=== PATIENT | male | born 1955 | race Caucasian/White ===

== ENCOUNTER 2017-04-24 07:11 | Emergency (ER) | payer MEDICAID ==
[~2017-04-24] VITALS: Ht 195.6 cm; Wt 102.0 kg
[~2017-04-24 07:11] MED LIST: VENTAER INH; ZITHTAB PO
[2017-04-24 07:14] VITALS: BP 147/62; PULSE 86; RESP 20; TEMP 97.6; O2SAT 95
[2017-04-24] MEDS ORDERED: SODIUM CHLORIDE 0.9% FLUSH 10 ML FLUSH IVF PRN (07:30)
[2017-04-24] MEDS ORDERED: methylPREDNISolone SOD SUCC 125 MG/2 ML VIAL IVP ONE (07:30)
--- NOTE | 2017-04-24 07:34 | PD ---
HPI Chief Complaint: Respiratory Symptoms Time Seen by Provider: 07:26 Travel History International Travel<30 days: No Contact w/Intl Traveler<30days: No Traveled to known affect area: No History of Present Illness HPI The patient is a 61 year-old male who presents to the emergency department for cough and cold symptoms of 3 days' duration. The patient complains of cough, congestion, chest pain with coughing, and mild shortness of breath. The patient states his cough has been mostly productive with white sputum, intermittent chills and sweats, and subjective fevers at home. The patient does have a history of pneumonia and previous "lung scraping "on the left lung at [facility] secondary to pneumonia years ago. The patient does have a history tobacco use, quit smoking 20 years ago. The patient used an albuterol nebulizer and inhaler at home last night with minimal relief of his symptoms. He also noted one episode of nausea/vomiting last night, but denies any abdominal pain. He denies any dysuria, myalgias, but does complain of diffuse arthralgias secondary to arthritis. The patient's primary physician is Dr. Samano. [facility] Past Medical History Hx Anticoagulant Therapy: No Cardiovascular Problems: No COPD: Yes Hepatitis: Yes (C) Respiratory: Yes (COPD) Pneumonia: Yes Past Surgical History Oral Surgery: Yes (jaw wired) Other Surgery: Yes ("LUNGS SCRAPED R/T PNA") Social History Alcohol Use: Yes (weekly) Tobacco Use: No (hx 30 years ago ) Substance Use: No Allergies-Medications (Allergen,Severity, Reaction): Coded Allergies: No Known Allergies (Unverified , 04/24/17) Reported Meds & Prescriptions Reported Meds & Active Scripts Active Reported Methylprednisolone 16 Mg Tab 15 Mg PO DAILY Ventolin Hfa 18 GM Inh (Albuterol Sulfate) 90 Mcg/Act Aer 1 Puff INH Q4H PRN Review of Systems Except as stated in HPI: all other systems reviewed are Neg General / Constitutional: Positive: Fever (subjective), Chills HENT: No: Headaches Cardiovascular: Positive: Chest Pain or Discomfort (secondary to cough) Respiratory: Positive: Cough, Shortness of Breath Gastrointestinal: Positive: Nausea, Vomiting, No: Diarrhea, Abdominal Pain Genitourinary: No: Dysuria Musculoskeletal: Positive: Arthralgias, Weakness, No: Myalgias Neurologic: Positive: Weakness, No: Dizziness Physical Exam Narrative GENERAL: Awake, alert, pleasant 7-year-old male who appears his stated age and is in no acute respiratory distress. SKIN: Focused skin assessment warm/dry. HEAD: Atraumatic. Normocephalic. EYES: Pupils equal and round. No scleral icterus. No injection or drainage. ENT: No nasal bleeding or discharge. Mucous membranes pink and moist. NECK: Trachea midline. No JVD. CARDIOVASCULAR: Regular rate and rhythm. No murmur appreciated. Heart rate in the 80s. RESPIRATORY: No accessory muscle use. Prolonged expiratory phase with intermittent wheezes and rhonchi in the right base. Well-healed scar over the left mid back. GASTROINTESTINAL: Abdomen soft, non-tender, nondistended. No rebound tenderness. MUSCULOSKELETAL: No obvious deformities. No clubbing. No cyanosis. No edema. NEUROLOGICAL: Awake and alert. No obvious cranial nerve deficits. Motor grossly within normal limits. Normal speech. PSYCHIATRIC: Appropriate mood and affect; insight and judgment normal. Data Data Last Documented VS Vital Signs Date Time Temp Pulse Resp B/P Pulse Ox O2 Delivery O2 Flow Rate FiO2 04/24/17 07:59 97 Room Air 04/24/17 07:29 80 80 04/24/17 07:14 97.6 147/62 Orders Complete Blood Count With Diff (04/24/17 07:30) Comprehensive Metabolic Panel (04/24/17 07:30) B-Type Natriuretic Peptide (04/24/17 07:30) Magnesium (Mg) (04/24/17 07:30) Ckmb (Isoenzyme) Profile (04/24/17 07:30) Troponin I (04/24/17 07:30) Iv Access Insert/Monitor (04/24/17 07:30) Electrocardiogram (04/24/17 07:30) Ecg Monitoring (04/24/17 07:30) Oximetry (04/24/17 07:30) Oxygen Administration (04/24/17 07:30) Chest, Single Ap (04/24/17 07:30) Sodium Chloride 0.9% Flush (Ns Flush) (04/24/17 07:30) Methylprednisolone So Succ Inj (Solumedr (04/24/17 07:30) Albuterol-Ipratropium Neb (Duoneb Neb) (04/24/17 07:30) Lactic Acid (04/24/17 07:30) Labs Laboratory Tests Test 04/24/17 07:54 White Blood Count 9.9 TH/MM3 Red Blood Count 4.62 MIL/MM3 Hemoglobin 14.7 GM/DL Hematocrit 41.4 % Mean Corpuscular Volume 89.7 FL Mean Corpuscular Hemoglobin 31.7 PG Mean Corpuscular Hemoglobin 35.4 % Concent Red Cell Distribution Width 12.8 % Platelet Count 159 TH/MM3 Mean Platelet Volume 8.0 FL Neutrophils (%) (Auto) 80.7 % Lymphocytes (%) (Auto) 11.3 % Monocytes (%) (Auto) 6.7 % Eosinophils (%) (Auto) 0.7 % Basophils (%) (Auto) 0.6 % Neutrophils # (Auto) 8.0 TH/MM3 Lymphocytes # (Auto) 1.1 TH/MM3 Monocytes # (Auto) 0.7 TH/MM3 Eosinophils # (Auto) 0.1 TH/MM3 Basophils # (Auto) 0.1 TH/MM3 CBC Comment DIFF FINAL Differential Comment Sodium Level 143 MEQ/L Potassium Level 4.4 MEQ/L Chloride Level 107 MEQ/L Carbon Dioxide Level 30.1 MEQ/L Anion Gap 6 MEQ/L Blood Urea Nitrogen 27 MG/DL Creatinine 1.21 MG/DL Estimat Glomerular Filtration 61 ML/MIN Rate Random Glucose 99 MG/DL Lactic Acid Level 1.3 mmol/L Calcium Level 8.4 MG/DL Magnesium Level 2.0 MG/DL Total Bilirubin 0.9 MG/DL Aspartate Amino Transf 26 U/L (AST/SGOT) Alanine Aminotransferase 43 U/L (ALT/SGPT) Alkaline Phosphatase 61 U/L Total Creatine Kinase 88 U/L Troponin I LESS THAN 0.02 NG/ML B-Type Natriuretic Peptide 10 PG/ML Total Protein 7.2 GM/DL Albumin 3.5 GM/DL [facility] Medical Decision Making Medical Screen Exam Complete: Yes Emergency Medical Condition: Yes Medical Record Reviewed: Yes Interpretation(s) EKG reveals normal sinus rhythm with a rate of 67. No significant ST elevations or depressions noted. Last Impressions Chest X-Ray 04/24/17 0730 Signed Impressions: Service Date/Time: Monday, April 24, 2017 07:36 - CONCLUSION: Chronic opacity at the left lung base likely represents chronic pleural or parenchymal scar given the lack of significant change since the June 2016 examination. Alternatively, it is possible that chronic pleural effusion or pleural thickening is present as well. Kuldip Lambert MD Laboratory Tests Test 04/24/17 07:54 White Blood Count 9.9 TH/MM3 Red Blood Count 4.62 MIL/MM3 Hemoglobin 14.7 GM/DL Hematocrit 41.4 % Mean Corpuscular Volume 89.7 FL Mean Corpuscular Hemoglobin 31.7 PG Mean Corpuscular Hemoglobin 35.4 % Concent Red Cell Distribution Width 12.8 % Platelet Count 159 TH/MM3 Mean Platelet Volume 8.0 FL Neutrophils (%) (Auto) 80.7 % Lymphocytes (%) (Auto) 11.3 % Monocytes (%) (Auto) 6.7 % Eosinophils (%) (Auto) 0.7 % Basophils (%) (Auto) 0.6 % Neutrophils # (Auto) 8.0 TH/MM3 Lymphocytes # (Auto) 1.1 TH/MM3 Monocytes # (Auto) 0.7 TH/MM3 Eosinophils # (Auto) 0.1 TH/MM3 Basophils # (Auto) 0.1 TH/MM3 CBC Comment DIFF FINAL Differential Comment Sodium Level 143 MEQ/L Potassium Level 4.4 MEQ/L Chloride Level 107 MEQ/L Carbon Dioxide Level 30.1 MEQ/L Anion Gap 6 MEQ/L Blood Urea Nitrogen 27 MG/DL Creatinine 1.21 MG/DL Estimat Glomerular Filtration 61 ML/MIN Rate Random Glucose 99 MG/DL Lactic Acid Level 1.3 mmol/L Calcium Level 8.4 MG/DL Magnesium Level 2.0 MG/DL Total Bilirubin 0.9 MG/DL Aspartate Amino Transf 26 U/L (AST/SGOT) Alanine Aminotransferase 43 U/L (ALT/SGPT) Alkaline Phosphatase 61 U/L Total Creatine Kinase 88 U/L Troponin I LESS THAN 0.02 NG/ML B-Type Natriuretic Peptide 10 PG/ML Total Protein 7.2 GM/DL Albumin 3.5 GM/DL Differential Diagnosis Differential diagnosis includes bronchitis, pneumonia, pleural effusion, congestive heart failure, COPD exacerbation, acute coronary syndrome, viral syndrome, influenza. Narrative Course IV was established, labs are drawn and sent, and the patient was placed on cardiac telemetry monitoring and continuous pulse oximetry monitoring. EKG was ordered and interpreted. Chest x-ray was obtained. The patient was administered Solu-Medrol 125 mg and duo nebs 2. The chest x-ray reveals chronic changes, labs are unremarkable. The patient does have a history of recurrent pneumonia, will be treated for bronchitis with prednisone, Zithromax, and he is advised to continue his nebulizers at home. He is also advised to return if symptoms worsen or progress. Diagnosis Primary Impression: Bronchitis Patient Instructions: General Instructions Additional Instructions: Medications as directed. Follow-up with your primary physician. Continue your nebulizers at home every 4 hours while awake. Return if symptoms worsen or progress. Please provide the patient a copy of his lab results and chest x-ray results at discharge. Med/Other Pt SpecificInfo: Prescription(s) given Scripts Azithromycin (Zithromax Z-Richard)250 Mg [id number] Mg PO DIRECTED #1 DSPK Ref 0 500 MG (2 tabs) day 1, then 1 tab days 2-5. Prov:Angel Mcwilliams MD 04/24/17 Prednisone (Deltasone)20 Mg Tab40 Mg PO DAILY 4 Days Ref 0 Prov:Angel Mcwilliams MD 04/24/17 Disposition: DISCHARGE HOME Condition: Stable Angel Mcwilliams MD Apr 24, 2017 07:34
[2017-04-24] MEDS: RESP: ALBUTEROL 2.5 MG/IPRATROPIUM 0.5 MG NEB (SCH) INH ×2 (07:45→08:21)
[2017-04-24 08:04] LABS: BASOPHIL # 0.1 TH/MM3 (0-0.2); BASOPHIL % 0.6 % (0.0-2.0); EOSINOPHIL # 0.1 TH/MM3 (0-0.4); EOSINOPHIL % 0.7 % (0.0-4.0); HEMATOCRIT 41.4 % (39.0-51.0); HEMO FLAGS DIFF FINAL; LYMPH % 11.3 % (9.0-44.0); LYMPHOCYTE # 1.1 TH/MM3 (1.0-4.8); MEAN CELL VOLUME 89.7 FL (80.0-100.0); MEAN CORPUSCULAR HEMOGLOBIN 31.7 PG (27.0-34.0); MEAN CORPUSCULAR HGB CONC 35.4 % (32.0-36.0); MONO % 6.7 % (0.0-8.0); NEUT % 80.7 % (16.0-70.0); PLATELET COUNT 159 TH/MM3 (150-450); RED BLOOD COUNT 4.62 MIL/MM3 (4.50-5.90); RED CELL DISTRIBUTION WIDTH 12.8 % (11.6-17.2); WHITE BLOOD COUNT 9.9 TH/MM3 (4.0-11.0)
[2017-04-24] MEDS ORDERED: METH16TA PO (08:08)
--- NOTE | 2017-04-24 08:08 | RADRPT ---
EXAM DATE/TIME: 04/24/2017 07:36 [facility] COMPARISON: CHEST SINGLE AP, June 21, 2016, 10:01. CHEST SINGLE AP, September 29, 2016, 9:27. INDICATIONS : Cough and fever. MEDICAL HISTORY : hx pneumonia SURGICAL HISTORY : sx for pneumonia at [facility] ENCOUNTER: Initial ACUITY: 4 - 6 days PAIN SCORE: 5/10 LOCATION: Bilateral upper chest FINDINGS: Portable AP view of the chest demonstrates a normal-sized cardiac silhouette. There is pleural-parenc hymal opacity at the left lung base similar to the prior study. No pneumothorax is visualized. Right lung is clear. Bones demonstrate no acute finding. CONCLUSION: Chronic opacity at the left lung base likely represents chronic pleural or parenchymal scar given the lack of significant change since the June 2016 examination. Alternatively, it is possible that chr onic pleural effusion or pleural thickening is present as well. Kuldip Lambert MD on April 24, 2017 at 8:04 Board Certified Radiologist. This report was verified electronically.
[2017-04-24 08:44] LABS: ALT (GPT) 43 U/L (12-78); ANION GAP 6 MEQ/L (5-15); AST (GOT) 26 U/L (15-37); BICARBONATE 30.1 MEQ/L (21.0-32.0); BLOOD UREA NITROGEN 27 MG/DL (7-18); CHLORIDE 107 MEQ/L (98-107); GLOMERULAR FILTRATION RATE 61 ML/MIN (>89); POTASSIUM 4.4 MEQ/L (3.5-5.1); SODIUM (NA) 143 MEQ/L (136-145)
[2017-04-24 08:48] LABS: ALKALINE PHOSPHATASE 61 U/L (45-117); TOTAL BILIRUBIN ADULT 0.9 MG/DL (0.2-1.0)
[2017-04-24 08:52] LABS: CREATINE KINASE 88 U/L (39-308)
[2017-04-24] MEDS ORDERED: PRED-503 PO (09:13)
[2017-04-24] MEDS ORDERED: ZITHTAB PO (09:13)
--- NOTE | 2017-04-24 13:03 | EKG ---
Date Performed: 04/24/2017 Time Performed: 07:38:23 PTAGE: 61 years EKG: Sinus rhythm POSSIBLE RIGHT VENTRICULAR CONDUCTION DELAY BORDERLINE ECG PREVIOUS TRACING : 06/21/2016 09.47 Compared to prior tracing no significant change DOCTOR: Rafiq Mccurdy Interpretating Date/Time 04/24/2017 13:01:45
== END 2017-04-24 09:30 | disposition home or self-care (01) ==
LOC: NEPE 07:11
DX: J40 Bronchitis, not specified as acute or chronic (principal); R94.31 Abnormal electrocardiogram [ECG] [EKG]; R06.02 Shortness of breath
CPT/HCPCS: 71010; 80053; 82550; 83605; 83735; 83880; 84484; 85025; 93005; 94640; 94664; 96374; 99285; J2930

== ENCOUNTER 2017-07-01 09:39 | Emergency (ER) | payer MEDICAID ==
[~2017-07-01 09:39] MED LIST changes: +METH16TA PO; +PRED-503 PO
[2017-07-01 09:41] VITALS: BP 136/62; PULSE 59; RESP 15; TEMP 98.2; O2SAT 98
--- NOTE | 2017-07-01 09:57 | PD ---
HPI . Frequent coughing, head congestion for 3 days Chief Complaint: Cold / Flu Symptoms Time Seen by Provider: 09:57 Travel History International Travel<30 days: No Contact w/Intl Traveler<30days: No Traveled to known affect area: No History of Present Illness HPI 61-year-old male here with complaints of head congestion and coughing for the past 3 days. Patient tells me that he has a history of pneumonia several years ago and he does not want to be sick as he has a trip scheduled to [place] on July 09. Patient denies any fever or chills. He reports frequent dry coughing and some head congestion. PFSH Past Medical History Hx Anticoagulant Therapy: No Cardiovascular Problems: No COPD: Yes Hepatitis: Yes (C) Respiratory: Yes Pneumonia: Yes Past Surgical History Oral Surgery: Yes (jaw wired) Other Surgery: Yes ("LUNGS SCRAPED R/T PNA") Social History Alcohol Use: Yes (weekly) Tobacco Use: No (hx 30 years ago ) Substance Use: No Allergies-Medications (Allergen,Severity, Reaction): Coded Allergies: No Known Allergies (Unverified , 04/24/17) Reported Meds & Prescriptions Reported Meds & Active Scripts Active Ventolin Hfa 18 GM Inh (Albuterol Sulfate) 90 Mcg/Act Aer 2 Puff INH Q6H PRN Zithromax Z-Richard (Azithromycin) 250 Mg Dspk 250 Mg PO DIRECTED 500 MG (2 tabs) day 1, then 1 tab days 2-5. Medrol Dosepak (Methylprednisolone) 4 Mg Dspk 4 Mg PO DIRECTED Per Pharmacist direction Zithromax Z-Richard (Azithromycin) 250 Mg Dspk 250 Mg PO DIRECTED 500 MG (2 tabs) day 1, then 1 tab days 2-5. Deltasone (Prednisone) 20 Mg Tab 40 Mg PO DAILY 4 Days Reported Methylprednisolone 16 Mg Tab 15 Mg PO DAILY Ventolin Hfa 18 GM Inh (Albuterol Sulfate) 90 Mcg/Act Aer 1 Puff INH Q4H PRN Review of Systems General / Constitutional: No: Fever Eyes: No: Visual changes HENT: Positive: Congestion, No: Headaches Cardiovascular: No: Chest Pain or Discomfort Respiratory: Positive: Cough, No: Shortness of Breath Gastrointestinal: No: Abdominal Pain Genitourinary: No: Dysuria Musculoskeletal: No: Pain Skin: No Rash Neurologic: No: Weakness Psychiatric: No: Depression Endocrine: No: Polydipsia Hematologic/Lymphatic: No: Easy Bruising Physical Exam Narrative GENERAL: AAO x 3, no acute distress, Well-nourished, well-developed patient. SKIN: Warm and dry. No visible rashes or bruising. HEAD: Normocephalic and atraumatic. EYES: No scleral icterus. No injection or drainage. ENT: No nasal drainage noted. Mucous membranes pink. Airway patent. No posterior pharynx abnormality. TMs normal bilaterally NECK: Supple, trachea midline. No JVD. CARDIOVASCULAR: Regular rate and rhythm without murmurs, gallops, or rubs. RESPIRATORY: Breath sounds equal bilaterally. No accessory muscle use. No rhonchi or rales. No wheezing GASTROINTESTINAL: Visual inspection normal EXTREMITIES: No cyanosis or edema. BACK: No obvious deformity. NEURO: CN II-12 intact, manager integrity strength normal b/l, UE and LE 5/5, no focal deficits PSYCH: AAO x 3, normal affect. Data Data Last Documented VS Vital Signs Date Time Temp Pulse Resp B/P (MAP) Pulse Ox O2 Delivery O2 Flow Rate FiO2 07/01/17 09:41 98.2 59 15 136/62 (86) 98 Orders Orders Chest, Pa & Lat (07/01/17 10:00) MDM Medical Decision Making Medical Screen Exam Complete: Yes Emergency Medical Condition: Yes Medical Record Reviewed: Yes Differential Diagnosis Bronchitis, pneumonia, less likely influenza, sinusitis Narrative Course 61-year-old male here with complaints of frequent coughing and head congestion. On examination there are no gross abnormalities. Patient appears to have a bronchitis. Given his past medical history I will check a chest x-ray to rule out any type of pneumonia. This appears to be bronchitis. Discussed with Lien in radiology: no acute cardiopulmonary process. Provided prednisone, ventolin, and zithromax. Advised f/u with PCP. Diagnosis Primary Impression: Bronchitis Patient Instructions: General Instructions Additional Instructions: As we discussed the cough can last 6-8 weeks. Take medications as prescribed. If you are a smoker, try to quit. Follow up with your primary care provider. If you develop sudden onset or worsening of shortness or breath, please go to the nearest emergency room. Please return to emergency department if your symptoms return or worsen. Follow up with your primary care provider. Take medications as prescribed. Med/Other Pt SpecificInfo: Prescription(s) given Scripts Albuterol 18 GM Inh (Ventolin Hfa 18 GM Inh) 90 Mcg/Act Aer 2 PUFF INH Q6H Y for SHORTNESS OF BREATH, #1 INHALER 0 Refills Prov: Jorge L Rene MD 07/01/17 Azithromycin (Zithromax Z-Richard) 250 Mg Dspk 250 MG PO DIRECTED for Infection, #1 DSPK 0 Refills 500 MG (2 tabs) day 1, then 1 tab days 2-5. Prov: Jorge L Rene MD 07/01/17 Methylprednisolone Dosepak (Medrol Dosepak) 4 Mg Dspk 4 MG PO DIRECTED, #1 DSPK 0 Refills Per Pharmacist direction Prov: Jorge L Rene MD 07/01/17 Disposition: 01 DISCHARGE HOME Condition: Stable Corrie Richardson Jul 01, 2017 09:57
--- NOTE | 2017-07-01 10:51 | RADRPT ---
EXAM DATE/TIME: 07/01/2017 10:26 [facility] COMPARISON: CHEST SINGLE AP, June 21, 2016, 10:01. INDICATIONS : Cough. MEDICAL HISTORY : Chronic obstructive pulmonary disease. Hepatitis C. SURGICAL HISTORY : None. ENCOUNTER: Initial ACUITY: 3 days PAIN SCORE: 6/10 LOCATION: Bilateral middle chest FINDINGS: The lungs are clear without infiltrate, nodule, or mass except for scarring in the left lung base and left costophrenic angle not changed since 2016. COPD changes are again seen. There is no appreciabl e pleural effusion for technique. Heart and mediastinum are unremarkable. CONCLUSION: No acute cardiopulmonary disease. Darlene Kennedy MD on July 01, 2017 at 10:48 Board Certified Radiologist. This report was verified electronically.
[2017-07-01] MEDS ORDERED: VENTAER INH (11:34)
[2017-07-01] MEDS ORDERED: MEDR4PAK PO (11:34)
[2017-07-01] MEDS ORDERED: ZITHTAB PO (11:34)
== END 2017-07-01 09:40 | disposition home or self-care (01) ==
LOC: NEPK 09:39 → NETRI 09:40
DX: J40 Bronchitis, not specified as acute or chronic (principal); J44.9 Chronic obstructive pulmonary disease, unspecified; Z86.19 Personal history of other infectious and parasitic diseases; Z79.899 Other long term (current) drug therapy
CPT/HCPCS: 71020; 99284

== ENCOUNTER 2017-10-26 07:12 | Emergency (ER) | payer MEDICAID ==
[~2017-10-26] VITALS: Ht 195.6 cm; Wt 95.0 kg
[~2017-10-26 07:12] MED LIST changes: +MEDR4PAK PO
[2017-10-26 07:15] VITALS: BP 140/75; PULSE 64; RESP 18; TEMP 97.6; O2SAT 98
[2017-10-26] MEDS ORDERED: MELO15TA20 PO (07:25)
--- NOTE | 2017-10-26 07:37 | PD ---
HPI Chief Complaint: Cold / Flu Symptoms Time Seen by Provider: 07:37 Travel History International Travel<30 days: No Contact w/Intl Traveler<30days: No Traveled to known affect area: No History of Present Illness HPI 61-year-old male, with history of COPD, presents to the emergency Department with complaint of cough since Wednesday. He is concerned he has pneumonia because he has had pneumonia many times in the past. With wheezing and chest congestion. Denies chest pain, shortness of breath. Denies fevers, nasal congestion, ear pain. Reports throat irritation. Has been using his albuterol nebulizer and inhaler at home with good relief of symptoms. No known relieving or aggravating factors. Symptoms are mild in severity. Dr. Samano is primary care provider. No known allergies. Has no medical complaints. No other modifying factors or associated signs. PFSH Past Medical History Hx Anticoagulant Therapy: No Arthritis: Yes Cardiovascular Problems: No Chemotherapy: No COPD: Yes Diminished Hearing: No Hepatitis: Yes (C) Respiratory: Yes Pneumonia: Yes Tetanus Vaccination: < 5 Years Influenza Vaccination: No Past Surgical History Oral Surgery: Yes (jaw wired) Other Surgery: Yes ("LUNGS SCRAPED R/T PNA") Social History Alcohol Use: Yes (ocassionally) Tobacco Use: No (quit 20 years ago) Substance Use: No Allergies-Medications (Allergen,Severity, Reaction): Coded Allergies: No Known Allergies (Verified Adverse Reaction, Unknown, 10/26/17) Reported Meds & Prescriptions Reported Meds & Active Scripts Active Ventolin Hfa 18 GM Inh (Albuterol Sulfate) 90 Mcg/Act Aer 2 Puff INH Q4-6H PRN Deltasone (Prednisone) 20 Mg Tab 40 Mg PO DAILY 4 Days start 10/27/2017 Azithromycin 500 Mg Tab 500 Mg PO DAILY Reported Meloxicam 15 Mg Tab 15 Mg PO DAILY Review of Systems Except as stated in HPI: all other systems reviewed are Neg Physical Exam Narrative GENERAL: Well-nourished, well-developed male patient, in no acute distress; afebrile, nontoxic-appearing SKIN: Warm and dry. HEAD: Atraumatic. Normocephalic. EYES: Pupils equal and round. No scleral icterus. No injection or drainage. ENT: Mucosa pink and moist. No erythema or exudates. No uvular edema. No uvular , palatal, or tonsillar deviation. Airway patent. Nares without nasal blood, purulent drainage or septal hematoma. EARS: Bilateral pinnae and external canals appear within normal limits. Bilateral tympanic membranes without erythema, dullness or perforation. NECK: Trachea midline. No lymphadenopathy. CARDIOVASCULAR: Regular rate and rhythm. No murmur appreciated. RESPIRATORY: No accessory muscle use. Lungs with mild Wheezing throughout to auscultation. Breath sounds equal bilaterally. No retractions or tachypnea. No Audible wheezing noted. GASTROINTESTINAL: Abdomen soft, non-tender, nondistended. Hepatic and splenic margins not palpable. Bowel sounds are active 4 quadrants. MUSCULOSKELETAL: No obvious deformities. No clubbing. No cyanosis. No edema. NEUROLOGICAL: Awake and alert. Oriented 3. No obvious cranial nerve deficits. Motor grossly within normal limits. Normal speech. Moves all extremities. 5/5 strength to all extremities. PSYCHIATRIC: Appropriate mood and affect; insight and judgment normal. Data Data Last Documented VS Vital Signs Date Time Temp Pulse Resp B/P (MAP) Pulse Ox O2 Delivery O2 Flow Rate FiO2 10/26/17 07:26 69 18 98 Room Air 10/26/17 07:15 97.6 140/75 (96) Orders Orders Chest, Single Ap (10/26/17 07:32) Prednisone (Deltasone) (10/26/17 07:45) Albuterol-Ipratropium Neb (Duoneb Neb) (10/26/17 07:45) Albuterol-Ipratropium Neb (Duoneb Neb) (10/26/17 08:00) Ed Discharge Order (10/26/17 08:22) [facility] Medical Decision Making Medical Screen Exam Complete: Yes Emergency Medical Condition: Yes Medical Record Reviewed: Yes Differential Diagnosis Pneumonia, COPD exacerbation, viral illness Narrative Course 61-year-old male with history of COPD with suspected viral illness and COPD exacerbation. He is in no acute distress and oxygen saturation is 98% on room air. No audible wheezing. Mild wheezing on auscultation of bilateral lungs. Lung sounds are equal. Patient is afebrile and nontoxic-appearing. He denies fevers, vomiting. DuoNeb, Deltasone, chest x-ray ordered. 0758: Respiratory therapist requesting a second DuoNeb. Second DuoNeb ordered. 0823: Chest x-ray concludes: Chest X-Ray 10/26/17 0732 Signed Impressions: Service Date/Time: Thursday, October 26, 2017 07:42 - CONCLUSION: 1. 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 2. No acute abnormality or significant interval change. Eric Masters MD This findings with the patient and a copy of the chest x-ray report was provided to the patient. On reexamination lung sounds are clear and equal throughout. Patient reports improvement in symptoms. Azithromycin, Ventolin inhaler, Deltasone prescribed for home. Instructed to patient to follow up with primary care provider and fisheries enforcement officer. Instructed patient to follow up with primary care provider. Patient verbalizes understanding and agreement with treatment plan. Patient is medically cleared and stable for discharge. Discussed reasons to return to the emergency department. Patient agrees with treatment plan. The patients vital signs are stable and the patient is stable for outpatient follow-up and treatment. Patient discharged home, stable and in no acute distress. Diagnosis Primary Impression: COPD exacerbation Additional Impression: Viral illness Referrals: Primary Care Physician Natural Science Manager Patient Instructions: COPD (Chronic Obstructive Pulmonary Disease) (ED), Cold Symptoms (ED), General Instructions, Safe Use of Cough and Cold Medicines (ED) Additional Instructions: Antibiotics as prescribed Use Albuterol inhaler as prescribed Take oral steroids as prescribed and complete full course [id number] decongestants or antihistamines as directed and as needed for symptom management Drink plenty of fluids to prevent dehydration Use hot air humidifier to decrease cough exacerbation Turn off ceiling fans and sleep with head of bed elevated Avoid triggers such as second hand smoke, dust, known allergens Follow-up with your primary care provider Return to the emergency department immediately with worsening of symptoms Med/Other Pt SpecificInfo: Prescription(s) given Scripts Albuterol 18 GM Inh (Ventolin Hfa 18 GM Inh) 90 Mcg/Act Aer 2 PUFF INH Q4-6H Y for SOB/WHEEZING, #1 INHALER 0 Refills Prov: Olivia Garnett POLICE RECORDS CLERK 10/26/17 Prednisone (Deltasone) 20 Mg Tab 40 MG PO DAILY for 4 Days, #8 TAB 0 Refills start 10/27/2017 Prov: Olivia GarnettP 10/26/17 Azithromycin (Azithromycin) 500 Mg Tab 500 MG PO DAILY for Infection, #5 TAB 0 Refills Prov: Olivia Garnett 10/26/17 Disposition: 01 DISCHARGE HOME Condition: Stable Olivia Garnett Oct 26, 2017 07:37
[2017-10-26] MEDS ORDERED: RESP: ALBUTEROL 2.5 MG/IPRATROPIUM 0.5 MG NEB (SCH) INH ONE ×2 (07:45→08:00)
[2017-10-26] MEDS ORDERED: predniSONE 20 MG TAB PO ONE (07:45)
[2017-10-26] MEDS ORDERED: VENTAER INH (07:49)
[2017-10-26] MEDS ORDERED: AZIT500T2 PO (07:49)
[2017-10-26] MEDS ORDERED: PRED-503 PO (07:49)
--- NOTE | 2017-10-26 07:59 | RADRPT ---
EXAM DATE/TIME: 10/26/2017 07:42 [facility] COMPARISON: CHEST SINGLE AP, April 24, 2017, 7:36. INDICATIONS : Cough, congestion, shortness of breath. MEDICAL HISTORY : Arthritis. Chronic obstructive pulmonary disease. Hepatitis C. SURGICAL HISTORY : None. ENCOUNTER: Initial ACUITY: 3 days PAIN SCORE: 0/10 LOCATION: Bilateral chest FINDINGS: Redemonstration of pleural parenchymal opacity at the left lung base. No new focal pleural or parench ymal opacities. Cardiomediastinal contours are within normal limits. Bony thorax is intact. CONCLUSION: 1. 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 2. No acute abnormality or significant interval change. Eric Masters MD on October 26, 2017 at 7:55 Board Certified Radiologist. This report was verified electronically.
[2017-10-26 08:35] VITALS: BP 124/85; TEMP 97.8
== END 2017-10-26 08:35 | disposition home or self-care (01) ==
LOC: NEPD 07:12
DX: J44.1 Chronic obstructive pulmonary disease with (acute) exacerbation (principal); Z87.891 Personal history of nicotine dependence
CPT/HCPCS: 71010; 94640; 94664; 99284; J7512

== ENCOUNTER 2017-11-16 19:01 | Emergency (ER) | payer MEDICAID ==
[~2017-11-16 19:01] MED LIST changes: +AZIT500T2 PO; -MEDR4PAK PO; +MELO15TA20 PO; -METH16TA PO; -ZITHTAB PO
[2017-11-16 19:03] VITALS: BP 141/88; PULSE 72; RESP 16; TEMP 98.1; O2SAT 98
[2017-11-16 20:41] LABS: AUTOMATED NEUTROPHIL # 8.1 TH/MM3 (1.8-7.7); BASOPHIL # 0.1 TH/MM3 (0-0.2); BASOPHIL % 0.5 % (0.0-2.0); EOSINOPHIL # 0.2 TH/MM3 (0-0.4); EOSINOPHIL % 1.5 % (0.0-4.0); HEMATOCRIT 44.8 % (39.0-51.0); HEMOGLOBIN 15.8 GM/DL (13.0-17.0); LYMPH % 15.7 % (9.0-44.0); LYMPHOCYTE # 1.7 TH/MM3 (1.0-4.8); MEAN CORPUSCULAR HEMOGLOBIN 32.4 PG (27.0-34.0); MEAN CORPUSCULAR HGB CONC 35.2 % (32.0-36.0); MEAN PLATELET VOLUME 8.4 FL (7.0-11.0); MONO % 7.4 % (0.0-8.0); MONOCYTE # 0.8 TH/MM3 (0-0.9); NEUT % 74.9 % (16.0-70.0); PLATELET COUNT 199 TH/MM3 (150-450); RED BLOOD COUNT 4.87 MIL/MM3 (4.50-5.90); RED CELL DISTRIBUTION WIDTH 13.1 % (11.6-17.2); WHITE BLOOD COUNT 10.8 TH/MM3 (4.0-11.0)
[2017-11-16 20:51] LABS: ALBUMIN 3.8 GM/DL (3.4-5.0); AST (GOT) 31 U/L (15-37); BLOOD UREA NITROGEN 18 MG/DL (7-18); CHLORIDE 104 MEQ/L (98-107); CREATININE 1.37 MG/DL (0.60-1.30); GLOMERULAR FILTRATION RATE 53 ML/MIN (>89); GLUCOSE,RANDOM 86 MG/DL (74-106); SODIUM (NA) 137 MEQ/L (136-145)
[2017-11-16 20:52] LABS: ALT (GPT) 42 U/L (12-78)
[2017-11-16 20:55] LABS: ALKALINE PHOSPHATASE 54 U/L (45-117); TOTAL BILIRUBIN ADULT 0.7 MG/DL (0.2-1.0); TOTAL PROTEIN 8.1 GM/DL (6.4-8.2)
[2017-11-17] MEDS ORDERED: IBUP1TAB7 PO (13:43)
[2017-11-17] MEDS ORDERED: SULF1TAB23 PO (13:43)
[2017-11-17] MEDS ORDERED: CEPH500C PO (13:43)
[2017-11-17] MEDS ORDERED: CLIN150C14 PO (14:17)
--- NOTE | 2017-11-23 22:30 | PD ---
HPI Chief Complaint: Skin Problem Time Seen by Provider: 19:46 Travel History International Travel<30 days: No Contact w/Intl Traveler<30days: No Traveled to known affect area: No History of Present Illness HPI Pt has a 62-year-old male presenting to the emergency room for evaluation of redness to his right thigh. Patient states he went to urgent care Wednesday [place] prescribed antibiotics. He states he has been compliant with this regimen. Despite the antibiotic therapy the redness has worsened prompting his visit to the emergency department. Patient's symptoms started on Wednesday, he reports a remote history of IV drug use an day history of hepatitis C. patient reports subjective fevers or chills. He states the pain as a 7 out of 10. There are no alleviating factors. His pain exacerbated to touch. PFSH Past Medical History Hx Anticoagulant Therapy: No Arthritis: Yes Cardiovascular Problems: No Chemotherapy: No COPD: Yes Diminished Hearing: No Hepatitis: Yes (C) Respiratory: Yes Pneumonia: Yes Past Surgical History Oral Surgery: Yes (jaw wired) Other Surgery: Yes ("LUNGS SCRAPED R/T PNA") Social History Alcohol Use: Yes (ocassionally) Tobacco Use: No (quit 20 years ago) Substance Use: No Allergies-Medications (Allergen,Severity, Reaction): Coded Allergies: No Known Allergies (Verified Adverse Reaction, Unknown, 11/23/17) Reported Meds & Prescriptions Reported Meds & Active Scripts Active Tessalon Perles (Benzonatate) 100 Mg Cap 100 Mg PO TID PRN Diclofenac Sodium DR (Diclofenac Sodium) 75 Mg Tabdr 75 Mg PO BID PRN Azithromycin 250 Mg Tab 250 Mg PO DIRECTED Take 2 tabs (500 mg) on day 1 then 1 tab daily x 4 days. Deltasone (Prednisone) 20 Mg Tab 40 Mg PO DAILY 4 Days start 10/27/2017 Ventolin Hfa 18 GM Inh (Albuterol Sulfate) 90 Mcg/Act Aer 2 Puff INH Q4-6H PRN Clindamycin (Clindamycin HCl) 150 Mg Cap 300 Mg PO Q6H 7 Days Reported Sulfamethoxazole-Trimethoprim 800-160 Mg Tab 1 Tab PO BID Cephalexin 500 Mg Cap 500 Mg PO TID Ibuprofen 800 Mg Tab 800 Mg PO TID Meloxicam 15 Mg Tab 15 Mg PO DAILY Review of Systems Except as stated in HPI: all other systems reviewed are Neg General / Constitutional: Positive: Fever, Chills Musculoskeletal: Positive: Myalgias Skin: Positive Change in Pigmentation Physical Exam Narrative GENERAL: Well-developed, well-nourished, alert male. Presenting in no acute distress. SKIN: Warm and dry. Clothing covering area of redness. HEAD: Normocephalic. EYES: No scleral icterus. No injection or drainage. CARDIOVASCULAR: Regular rate RESPIRATORY: No accessory muscle use. Data Data Orders Orders Complete Blood Count With Diff (11/16/17 19:50) Comprehensive Metabolic Panel (11/16/17 19:50) Labs Laboratory Tests Test 11/16/17 20:05 White Blood Count 10.8 TH/MM3 Red Blood Count 4.87 MIL/MM3 Hemoglobin 15.8 GM/DL Hematocrit 44.8 % Mean Corpuscular Volume 92.0 FL Mean Corpuscular Hemoglobin 32.4 PG Mean Corpuscular Hemoglobin Concent 35.2 % Red Cell Distribution Width 13.1 % Platelet Count 199 TH/MM3 Mean Platelet Volume 8.4 FL Neutrophils (%) (Auto) 74.9 % Lymphocytes (%) (Auto) 15.7 % Monocytes (%) (Auto) 7.4 % Eosinophils (%) (Auto) 1.5 % Basophils (%) (Auto) 0.5 % Neutrophils # (Auto) 8.1 TH/MM3 Lymphocytes # (Auto) 1.7 TH/MM3 Monocytes # (Auto) 0.8 TH/MM3 Eosinophils # (Auto) 0.2 TH/MM3 Basophils # (Auto) 0.1 TH/MM3 CBC Comment AUTO DIFF Differential Comment AUTO DIFF CONFIRMED Blood Urea Nitrogen 18 MG/DL Creatinine 1.37 MG/DL Random Glucose 86 MG/DL Total Protein 8.1 GM/DL Albumin 3.8 GM/DL Calcium Level 9.0 MG/DL Alkaline Phosphatase 54 U/L Aspartate Amino Transf (AST/SGOT) 31 U/L Alanine Aminotransferase (ALT/SGPT) 42 U/L Total Bilirubin 0.7 MG/DL Sodium Level 137 MEQ/L Potassium Level 4.9 MEQ/L Chloride Level 104 MEQ/L Carbon Dioxide Level 29.0 MEQ/L Anion Gap 4 MEQ/L Estimat Glomerular Filtration Rate 53 ML/MIN MDM Medical Decision Making Medical Screen Exam Complete: Yes Emergency Medical Condition: Yes Differential Diagnosis Cellulitis versus abscess versus metabolic abnormality versus other Narrative Course Patient a 62-year-old male presenting to the emergency department for evaluation of cellulitis to his thigh. Patient's vital signs reviewed are stable. Patient awaiting bed placement. Protocol initiated in triage Patient has called to be bedded, he was not longer found in the emergency department. Lab's reviewed, no acute findings identified. Patient left the emergency department AGAINST MEDICAL ADVICE. Diagnosis Primary Impression: Left against medical advice Disposition: 07 AGAINST MEDICAL ADVICE Kenya Portillo Nov 23, 2017 22:30
== END 2017-11-17 00:35 | disposition left against medical advice (07) ==
LOC: NED 19:01
DX: L03.115 Cellulitis of right lower limb (principal); M19.90 Unspecified osteoarthritis, unspecified site; B19.20 Unspecified viral hepatitis C without hepatic coma; J44.9 Chronic obstructive pulmonary disease, unspecified; Z87.891 Personal history of nicotine dependence
CPT/HCPCS: 80053; 85025; 99283

== ENCOUNTER 2017-11-17 08:47 | Emergency (ER) | payer MEDICAID ==
[~2017-11-17] VITALS: Ht 195.6 cm; Wt 93.0 kg
[2017-11-17 08:48] VITALS: BP 119/84; PULSE 63; RESP 16; TEMP 97.7; O2SAT 98
[2017-11-17] MEDS ORDERED: SULF1TAB23 PO (13:43)
[2017-11-17] MEDS ORDERED: IBUP1TAB7 PO (13:43)
[2017-11-17] MEDS ORDERED: CEPH500C PO (13:43)
[2017-11-17] MEDS ORDERED: LIDOCAINE 2%/EPINEPHrine 1:100,000 20ML MDV NERV BLOCK ONE (13:45)
[2017-11-17] MEDS ORDERED: SODIUM CHLOR 0.9% 1000 ML INJ 1,000 ML IV ONE (13:45)
[2017-11-17] MEDS ORDERED: KETOROLAC TROMETHAMINE 30 MG/ML (IVP) VIAL IVP ONE (13:45)
[2017-11-17] MEDS ORDERED: SODIUM CHLORIDE 0.9% FLUSH 10 ML FLUSH IVF PRN (13:45)
[2017-11-17] MEDS ORDERED: CLINDAMYCIN INJ 900 MG in SODIUM CHLORIDE 0.9% INJ 100 ML IV ONE (13:45)
--- NOTE | 2017-11-17 13:45 | PD ---
HPI Chief Complaint: Skin Problem Time Seen by Provider: 13:41 Travel History International Travel<30 days: No Contact w/Intl Traveler<30days: No Traveled to known affect area: No History of Present Illness HPI 62-year-old male presents to emergency Department with worsening cellulitic type possible abscess to the right anterior thigh. Patient states it started last Wednesday, from a presumed insect bite. She was seen at urgent care and placed on Keflex, Bactrim, and ibuprofen. He states his symptoms have worsened with increased pain, swelling, and redness. Patient denies spontaneous drainage from the area. Patient denies fever or chills. Pain is currently 8 out of 10. It is much worse with palpation. There is no known drug allergies. PFSH Past Medical History Hx Anticoagulant Therapy: No Arthritis: Yes Cardiovascular Problems: No Chemotherapy: No COPD: Yes Diminished Hearing: No Hepatitis: Yes (C) Respiratory: Yes Pneumonia: Yes Past Surgical History Oral Surgery: Yes (jaw wired) Other Surgery: Yes ("LUNGS SCRAPED R/T PNA") Social History Alcohol Use: Yes (ocassionally) Tobacco Use: No (quit 20 years ago) Substance Use: No Allergies-Medications (Allergen,Severity, Reaction): Coded Allergies: No Known Allergies (Verified Adverse Reaction, Unknown, 11/17/17) Reported Meds & Prescriptions Reported Meds & Active Scripts Active Clindamycin (Clindamycin HCl) 150 Mg Cap 300 Mg PO Q6H 7 Days Ventolin Hfa 18 GM Inh (Albuterol Sulfate) 90 Mcg/Act Aer 2 Puff INH Q4-6H PRN Reported Sulfamethoxazole-Trimethoprim 800-160 Mg Tab 1 Tab PO BID Cephalexin 500 Mg Cap 500 Mg PO TID Ibuprofen 800 Mg Tab 800 Mg PO TID Meloxicam 15 Mg Tab 15 Mg PO DAILY Review of Systems Except as stated in HPI: all other systems reviewed are Neg General / Constitutional: No: Fever, Chills Eyes: No: Visual changes HENT: No: Headaches Cardiovascular: No: Chest Pain or Discomfort Respiratory: No: Shortness of Breath Gastrointestinal: No: Abdominal Pain Genitourinary: No: Dysuria Musculoskeletal: No: Pain Skin: Positive Lesions (see history present illness), No Rash Neurologic: No: Weakness Psychiatric: No: Depression Endocrine: No: Polydipsia Hematologic/Lymphatic: No: Easy Bruising Physical Exam Narrative GENERAL: Patient appears in mild to moderate distress. SKIN: Warm and dry. Patient has a 6 cm, erythematous, indurated, swollen, tender area to the right anterior mid thigh. He has streaking into the upper middle thigh with palpable lymph nodes which are tender in the right inguinal groin. There is no pointing or obvious spontaneous drainage. HEAD: Atraumatic. Normocephalic. EYES: Pupils equal and round. No scleral icterus. No injection or drainage. ENT: No nasal bleeding or discharge. Mucous membranes pink and moist. Pharynx is clear. Airway is patent. NECK: Trachea midline. Supple and nontender. CARDIOVASCULAR: Regular rate and rhythm. RESPIRATORY: No accessory muscle use. Clear to auscultation. Breath sounds equal bilaterally. GASTROINTESTINAL: Abdomen soft, non-tender, nondistended. Hepatic and splenic margins not palpable. MUSCULOSKELETAL: Extremities without clubbing, cyanosis, or edema. No obvious deformities. See SKIN. NEUROLOGICAL: Awake and alert. No obvious cranial nerve deficits. Motor grossly within normal limits. Five out of 5 muscle strength in the arms and legs. Normal speech. PSYCHIATRIC: Appropriate mood and affect; insight and judgment normal. Data Data Last Documented VS Vital Signs Date Time Temp Pulse Resp B/P (MAP) Pulse Ox O2 Delivery O2 Flow Rate FiO2 11/17/17 08:48 97.7 63 16 119/84 (96) 98 Room Air Orders Orders Complete Blood Count With Diff (11/17/17 13:39) Blood Culture (11/17/17 13:39) Wound Culture And Gram Stain (11/17/17 13:39) Iv Access Insert/Monitor (11/17/17 13:39) Ketorolac Inj (Toradol Inj) (11/17/17 13:45) Sodium Chloride 0.9% Flush (Ns Flush) (11/17/17 13:45) Comprehensive Metabolic Panel (11/17/17 13:39) Lactic Acid (11/17/17 13:39) Sodium Chlor 0.9% 1000 Ml Inj (Ns 1000 M (11/17/17 13:45) Lidocai-Epi 2%-1:100,000 Inj (Xylocaine- (11/17/17 13:45) Clindamycin 900 Mg/Ns Premix (Cleocin 90 (11/17/17 14:00) Labs Laboratory Tests Test 11/17/17 13:50 White Blood Count 8.8 TH/MM3 Red Blood Count 4.81 MIL/MM3 Hemoglobin 15.0 GM/DL Hematocrit 44.9 % Mean Corpuscular Volume 93.4 FL Mean Corpuscular Hemoglobin 31.3 PG Mean Corpuscular Hemoglobin Concent 33.5 % Red Cell Distribution Width 12.9 % Platelet Count 196 TH/MM3 Mean Platelet Volume 8.1 FL Neutrophils (%) (Auto) 72.6 % Lymphocytes (%) (Auto) 16.9 % Monocytes (%) (Auto) 7.4 % Eosinophils (%) (Auto) 2.4 % Basophils (%) (Auto) 0.7 % Neutrophils # (Auto) 6.4 TH/MM3 Lymphocytes # (Auto) 1.5 TH/MM3 Monocytes # (Auto) 0.6 TH/MM3 Eosinophils # (Auto) 0.2 TH/MM3 Basophils # (Auto) 0.1 TH/MM3 CBC Comment DIFF FINAL Differential Comment Blood Urea Nitrogen 13 MG/DL Creatinine 1.05 MG/DL Random Glucose 90 MG/DL Total Protein 7.6 GM/DL Albumin 3.5 GM/DL Calcium Level 8.6 MG/DL Alkaline Phosphatase 52 U/L Aspartate Amino Transf (AST/SGOT) 36 U/L Alanine Aminotransferase (ALT/SGPT) 45 U/L Total Bilirubin 0.6 MG/DL Sodium Level 139 MEQ/L Potassium Level 5.0 MEQ/L Chloride Level 105 MEQ/L Carbon Dioxide Level 28.1 MEQ/L Anion Gap 6 MEQ/L Estimat Glomerular Filtration Rate 72 ML/MIN Lactic Acid Level 0.6 mmol/L [facility] Medical Decision Making Medical Screen Exam Complete: Yes Emergency Medical Condition: Yes Medical Record Reviewed: Yes Differential Diagnosis Right leg cellulitis. Abscess. MRSA. Failure to outpatient oral therapy. Narrative Course Patient is medically stable at time of exam. Labs ordered including CBC, CMP, lactic acid. IV access is obtained patient is given 900 mg clindamycin IV as well as 30 mg Toradol IV. I&D of abscess is performed. Labs show normal CBC, CMP is unremarkable. Lactic acid is 0.6. Patient is felt stable for discharge. Patient will be continued on clindamycin 150 mg, 2 tabs 4 times a day for 7 days. Patient is to keep dressing in place as previously applied. Patient is to return in 2 days for wound check and packing removal. Patient can return sooner with worsening symptoms if necessary. Procedures Procedure Narrative After the risks and benefits were discussed the following procedure was performed: INCISION AND DRAINAGE OF ABSCESS: The area was prepped and was sterilely draped. A subcutaneous wheal of 2 % Xylocaine with epi with a total number 3 mL was used to anesthetize the area. The area was properly anesthetized. A number #11 scalpel was used to make a 1-cm incision across the area of the abscess. Cultures were obtained. The abscess was drained an irrigated with normal saline. Quarter inch iodoform packing was placed in the wound. Sterile dressing applied. Patient advised to have packing removed in two days. Diagnosis Primary Impression: Abscess of right thigh Referrals: [facility] Patient Instructions: Abscess Incision and Drainage (DC), General Instructions Additional Instructions: I&D of abscess is performed. Labs show normal CBC, CMP is unremarkable. Lactic acid is 0.6. Patient is felt stable for discharge. Patient will be continued on clindamycin 150 mg, 2 tabs 4 times a day for 7 days. Patient is to keep dressing in place as previously applied. Patient is to return in 2 days for wound check and packing removal. Patient can return sooner with worsening symptoms if necessary. Med/Other Pt SpecificInfo: Prescription(s) given Scripts Clindamycin (Clindamycin) 150 Mg Cap 300 MG PO Q6H for Infection for 7 Days, #56 CAP 0 Refills Prov: Angel Mcwilliams MD 11/17/17 Disposition: 01 DISCHARGE HOME Condition: Stable Wilbur Justin Nov 17, 2017 13:45
[2017-11-17] MEDS ORDERED: CLINDAMYCIN 900 MG/NS PREMIX 50 ML IV ONE (14:00)
[2017-11-17 14:12] LABS: AUTOMATED NEUTROPHIL # 6.4 TH/MM3 (1.8-7.7); BASOPHIL # 0.1 TH/MM3 (0-0.2); BASOPHIL % 0.7 % (0.0-2.0); EOSINOPHIL # 0.2 TH/MM3 (0-0.4); EOSINOPHIL % 2.4 % (0.0-4.0); HEMATOCRIT 44.9 % (39.0-51.0); LYMPH % 16.9 % (9.0-44.0); LYMPHOCYTE # 1.5 TH/MM3 (1.0-4.8); MEAN CELL VOLUME 93.4 FL (80.0-100.0); MEAN CORPUSCULAR HEMOGLOBIN 31.3 PG (27.0-34.0); MEAN CORPUSCULAR HGB CONC 33.5 % (32.0-36.0); MEAN PLATELET VOLUME 8.1 FL (7.0-11.0); MONO % 7.4 % (0.0-8.0); MONOCYTE # 0.6 TH/MM3 (0-0.9); NEUT % 72.6 % (16.0-70.0); PLATELET COUNT 196 TH/MM3 (150-450); RED BLOOD COUNT 4.81 MIL/MM3 (4.50-5.90); RED CELL DISTRIBUTION WIDTH 12.9 % (11.6-17.2); WHITE BLOOD COUNT 8.8 TH/MM3 (4.0-11.0)
[2017-11-17] MEDS ORDERED: CLIN150C14 PO (14:17)
[2017-11-17 14:32] LABS: ALKALINE PHOSPHATASE 52 U/L (45-117); TOTAL BILIRUBIN ADULT 0.6 MG/DL (0.2-1.0); TOTAL PROTEIN 7.6 GM/DL (6.4-8.2)
[2017-11-17 14:35] LABS: ALBUMIN 3.5 GM/DL (3.4-5.0); ALT (GPT) 45 U/L (12-78); AST (GOT) 36 U/L (15-37); BICARBONATE 28.1 MEQ/L (21.0-32.0); BLOOD UREA NITROGEN 13 MG/DL (7-18); CALCIUM 8.6 MG/DL (8.5-10.1); CHLORIDE 105 MEQ/L (98-107); CREATININE 1.05 MG/DL (0.60-1.30); GLOMERULAR FILTRATION RATE 72 ML/MIN (>89); GLUCOSE,RANDOM 90 MG/DL (74-106); SODIUM (NA) 139 MEQ/L (136-145)
== END 2017-11-17 15:06 | disposition home or self-care (01) ==
LOC: NEPC 08:47
DX: L02.415 Cutaneous abscess of right lower limb (principal); J44.9 Chronic obstructive pulmonary disease, unspecified; B95.62 Methicillin resistant Staphylococcus aureus infection as the cause of diseases classified elsewhere
CPT/HCPCS: 10061; 80053; 83605; 85025; 86403; 87040; 87070; 87186; 96374; 96375; 99284; J1885; J7030; 10060; 87205

== ENCOUNTER 2017-11-19 09:21 | Emergency (ER) | payer MEDICAID ==
[~2017-11-19] VITALS: Ht 195.6 cm; Wt 94.0 kg
[~2017-11-19 09:21] MED LIST changes: +CEPH500C PO; +CLIN150C14 PO; +IBUP1TAB7 PO; +SULF1TAB23 PO
[2017-11-19 09:22] VITALS: BP 124/80; PULSE 66; RESP 12; TEMP 98.5; O2SAT 99
--- NOTE | 2017-11-19 11:57 | PD ---
HPI Chief Complaint: Wound/Suture/Staple Re-Check Time Seen by Provider: 11:46 Travel History International Travel<30 days: No Contact w/Intl Traveler<30days: No Traveled to known affect area: No History of Present Illness HPI patient seen on nov 17, when he had his abscess i&d, and meds changed from keflex/bactrim to clindamycin. pt is here for wound recheck. PFSH Past Medical History Hx Anticoagulant Therapy: No Arthritis: Yes Cardiovascular Problems: No Chemotherapy: No COPD: Yes Diminished Hearing: Yes ([place]) Hepatitis: Yes (C) Musculoskeletal: Yes (lower back pain) Respiratory: Yes Pneumonia: Yes Past Surgical History Oral Surgery: Yes (jaw wired) Other Surgery: Yes ("LUNGS SCRAPED R/T PNA") Social History Alcohol Use: Yes ("couple beers here and there") Tobacco Use: No (quit 20 years ago) Substance Use: No Allergies-Medications (Allergen,Severity, Reaction): Coded Allergies: No Known Allergies (Verified Adverse Reaction, Unknown, 11/19/17) Reported Meds & Prescriptions Reported Meds & Active Scripts Active Clindamycin (Clindamycin HCl) 150 Mg Cap 300 Mg PO Q6H 7 Days Ventolin Hfa 18 GM Inh (Albuterol Sulfate) 90 Mcg/Act Aer 2 Puff INH Q4-6H PRN Reported Sulfamethoxazole-Trimethoprim 800-160 Mg Tab 1 Tab PO BID Cephalexin 500 Mg Cap 500 Mg PO TID Ibuprofen 800 Mg Tab 800 Mg PO TID Meloxicam 15 Mg Tab 15 Mg PO DAILY Review of Systems Except as stated in HPI: all other systems reviewed are Neg General / Constitutional: No: Fever Eyes: No: Visual changes HENT: No: Headaches Cardiovascular: No: Chest Pain or Discomfort Respiratory: No: Shortness of Breath Gastrointestinal: No: Abdominal Pain Genitourinary: No: Dysuria Musculoskeletal: No: Pain Skin: No Rash Neurologic: No: Weakness Psychiatric: No: Depression Endocrine: No: Polydipsia Hematologic/Lymphatic: No: Easy Bruising Physical Exam Narrative GENERAL: SKIN: Warm and dry. HEAD: Atraumatic. Normocephalic. EYES: Pupils equal and round. No scleral icterus. No injection or drainage. ENT: No nasal bleeding or discharge. Mucous membranes pink and moist. NECK: Trachea midline. No JVD. CARDIOVASCULAR: Regular rate and rhythm. RESPIRATORY: No accessory muscle use. Clear to auscultation. Breath sounds equal bilaterally. GASTROINTESTINAL: Abdomen soft, non-tender, nondistended. MUSCULOSKELETAL: Extremities without clubbing, cyanosis, or edema. No obvious deformities. NEUROLOGICAL: Awake and alert. No obvious cranial nerve deficits. Motor grossly within normal limits. Five out of 5 muscle strength in the arms and legs. Normal speech. PSYCHIATRIC: Appropriate mood and affect; insight and judgment normal. Data Data Last Documented VS Vital Signs Date Time Temp Pulse Resp B/P (MAP) Pulse Ox O2 Delivery O2 Flow Rate FiO2 11/19/17 09:22 98.5 66 12 124/80 (95) 99 MDM Medical Decision Making Medical Screen Exam Complete: Yes Emergency Medical Condition: Yes Medical Record Reviewed: Yes Differential Diagnosis wound check...n/a Narrative Course see below Procedures Procedure Narrative right anterior thigh: removed packing, irrigated cavity with sterile salline under pressure, and redressed. Diagnosis Primary Impression: Encounter for wound re-check Referrals: [facility] Patient Instructions: General Instructions Additional Instructions: keep dry and have folllow up with Vuzit, no further packings needed, just regular wound dressing changes which can be done at home OR at an urgent care OR your primary care Disposition: 01 DISCHARGE HOME Condition: Stable Lasha Monroe MD Nov 19, 2017 11:57
== END 2017-11-19 12:09 | disposition home or self-care (01) ==
LOC: NEPD 09:21
DX: L02.91 Cutaneous abscess, unspecified (principal); Z48.01 Encounter for change or removal of surgical wound dressing
CPT/HCPCS: 99281

== ENCOUNTER 2017-11-23 10:04 | Emergency (ER) | payer MEDICAID ==
[~2017-11-23] VITALS: Ht 195.6 cm; Wt 100.0 kg
[2017-11-23 10:18] VITALS: BP 123/70; PULSE 87; RESP 28; TEMP 99.8
--- NOTE | 2017-11-23 11:14 | RADRPT ---
EXAM DATE/TIME: 11/23/2017 10:55 [facility] COMPARISON: CHEST SINGLE AP, October 26, 2017, 7:42. INDICATIONS : Cough. MEDICAL HISTORY : Arthritis. Chronic obstructive pulmonary disease. Hep C SURGICAL HISTORY : None. ENCOUNTER: Initial ACUITY: 1 day PAIN SCORE: 0/10 LOCATION: Bilateral chest FINDINGS: A single view of the chest demonstrates the lungs to be symmetrically aerated without evidence of mas s, infiltrate or effusion. The cardiomediastinal contours are unremarkable. Osseous structures are intact. Stable chronic pleural parenchymal changes left base CONCLUSION: Pleural-parenchymal scarring is noted in the left base unchanged. No acute cardiopulmonary process Viral Mg MD on November 23, 2017 at 11:10 Board Certified Radiologist. This report was verified electronically.
[2017-11-23 11:15] LABS: AUTOMATED NEUTROPHIL # 3.3 TH/MM3 (1.8-7.7); BASOPHIL % 0.4 % (0.0-2.0); EOSINOPHIL # 0.1 TH/MM3 (0-0.4); EOSINOPHIL % 2.1 % (0.0-4.0); HEMATOCRIT 39.2 % (39.0-51.0); HEMOGLOBIN 13.4 GM/DL (13.0-17.0); LYMPH % 4.8 % (9.0-44.0); LYMPHOCYTE # 0.2 TH/MM3 (1.0-4.8); MEAN CELL VOLUME 92.8 FL (80.0-100.0); MEAN CORPUSCULAR HEMOGLOBIN 31.8 PG (27.0-34.0); MEAN CORPUSCULAR HGB CONC 34.2 % (32.0-36.0); MEAN PLATELET VOLUME 8.1 FL (7.0-11.0); MONO % 12.9 % (0.0-8.0); MONOCYTE # 0.5 TH/MM3 (0-0.9); NEUT % 79.8 % (16.0-70.0); PLATELET COUNT 161 TH/MM3 (150-450); RED BLOOD COUNT 4.22 MIL/MM3 (4.50-5.90); RED CELL DISTRIBUTION WIDTH 12.9 % (11.6-17.2); WHITE BLOOD COUNT 4.2 TH/MM3 (4.0-11.0)
[2017-11-23 11:22] LABS: INTERNATIONAL NORMALIZED RATIO 1.1 RATIO; PROTHROMBIN TIME - PATIENT 10.7 SEC (9.8-11.6)
[2017-11-23] MEDS ORDERED: methylPREDNISolone SOD SUCC 125 MG/2 ML VIAL IV PUSH ONE (11:30)
[2017-11-23] MEDS ORDERED: KETOROLAC TROMETHAMINE 30 MG/ML (IVP) VIAL IV PUSH ONE (11:30)
[2017-11-23] MEDS: RESP: ALBUTEROL 2.5 MG/IPRATROPIUM 0.5 MG NEB (SCH) INH (11:31)
--- NOTE | 2017-11-23 11:32 | PD ---
HPI Chief Complaint: Respiratory Symptoms Time Seen by Provider: 11:08 Travel History International Travel<30 days: No Contact w/Intl Traveler<30days: No Traveled to known affect area: No History of Present Illness HPI 62-year-old male presents to the ED for evaluation of shortness of breath. Per patient has been having cough plan body aches as well as back pain in some left- sided discomfort with cough for the past 3 days. Patient has a known history of COPD and has been diagnosed with bronchitis multiple times this last year. Patient states that he does use to smoke. Patient with seen recently for an abscess on antibiotics states that this has improved. He denies any other medical issues at this time. Per patient the pain is 7 out of 10. Patient is concerned that he may have something with his kidneys as he is having some back pain. On exam patient's coughing but appears to be dry. He denies any recent travel states having sick contacts at home. Has no allergies to medication. Has not taken anything for this. Denies getting the flu vaccine this year. He denies any cardiac history. No other medical issues. PFSH Past Medical History Hx Anticoagulant Therapy: No Arthritis: Yes Cardiovascular Problems: No Chemotherapy: No COPD: Yes Diabetes: No Diminished Hearing: Yes ([place]) Hepatitis: Yes (C) Medical other: Yes (I & D ABSCESS ) Musculoskeletal: Yes (LOW BACK PAIN ) Respiratory: Yes (COPD, PNEUMONIA , PLEURAL EFFUSION ) Pneumonia: Yes Tetanus Vaccination: < 5 Years Influenza Vaccination: No Past Surgical History Oral Surgery: Yes (jaw wired) Other Surgery: Yes ("LUNGS SCRAPED R/T PNA") Social History Alcohol Use: Yes ("couple beers here and there") Tobacco Use: No (quit 20 years ago) Substance Use: No (HX:COCCAINE USE YEARS AGO ) Allergies-Medications (Allergen,Severity, Reaction): Coded Allergies: No Known Allergies (Verified Adverse Reaction, Unknown, 11/23/17) Reported Meds & Prescriptions Reported Meds & Active Scripts Active Diclofenac Sodium DR (Diclofenac Sodium) 75 Mg Tabdr 75 Mg PO BID PRN Azithromycin 250 Mg Tab 250 Mg PO DIRECTED Take 2 tabs (500 mg) on day 1 then 1 tab daily x 4 days. Deltasone (Prednisone) 20 Mg Tab 40 Mg PO DAILY 4 Days start 10/27/2017 Ventolin Hfa 18 GM Inh (Albuterol Sulfate) 90 Mcg/Act Aer 2 Puff INH Q4-6H PRN Clindamycin (Clindamycin HCl) 150 Mg Cap 300 Mg PO Q6H 7 Days Reported Sulfamethoxazole-Trimethoprim 800-160 Mg Tab 1 Tab PO BID Cephalexin 500 Mg Cap 500 Mg PO TID Ibuprofen 800 Mg Tab 800 Mg PO TID Meloxicam 15 Mg Tab 15 Mg PO DAILY Review of Systems Except as stated in HPI: all other systems reviewed are Neg Physical Exam Narrative GENERAL: Well-nourished, well-developed patient in no apparent distress. SKIN: Warm and dry. HEAD: Atraumatic. Normocephalic. EYES: Pupils equal and round reactive to light and accommodation. No scleral icterus. No injection or drainage. ENT: No nasal bleeding or discharge. Mucous membranes pink and moist. TMs are clear with no sign of infection or perforation. No mastoid tenderness. Ear canals are intact bilaterally. No lymphadenopathy. Nostril mucosa is red and moist with clear mucus noted. No sinus tenderness to palpation noted. Tonsils are not enlarged or swollen. No ulvua Deviation. Tongue is midline. NECK: Trachea midline. No JVD. No meningeal signs noted CARDIOVASCULAR: Regular rate and rhythm. RESPIRATORY: No accessory muscle use. Mild wheezing heard especially in the lower lung mendoza mainly expiratory but hard to assess secondary to patient's continuous cough. Breath sounds equal bilaterally. GASTROINTESTINAL: Abdomen soft, non-tender, nondistended. Hepatic and splenic margins not palpable. MUSCULOSKELETAL: Extremities without clubbing, cyanosis, or edema. No obvious deformities. NEUROLOGICAL: Awake and alert. No obvious cranial nerve deficits. Motor grossly within normal limits. Five out of 5 muscle strength in the arms and legs. Normal speech. PSYCHIATRIC: Appropriate mood and affect; insight and judgment normal. Data Data Last Documented VS Vital Signs Date Time Temp Pulse Resp B/P (MAP) Pulse Ox O2 Delivery O2 Flow Rate FiO2 11/23/17 12:00 87 18 121/70 (87) 97 Aerosol Mask 11/23/17 10:18 99.8 Orders Orders Chest, Single Ap (11/23/17 ) Complete Blood Count With Diff (11/23/17 10:31) Comprehensive Metabolic Panel (11/23/17 10:31) Blood Culture (11/23/17 10:31) Lactic Acid (11/23/17 10:31) Troponin I (11/23/17 10:31) Coag Profile (11/23/17 10:31) Electrocardiogram (11/23/17 ) Influenzae A/B Antigen (11/23/17 11:10) Methylprednisolone So Succ Inj (Solumedr (11/23/17 11:30) Albuterol-Ipratropium Neb (Duoneb Neb) (11/23/17 11:30) Ketorolac Inj (Toradol Inj) (11/23/17 11:30) Ed Discharge Order (11/23/17 13:08) Labs Laboratory Tests Test 11/23/17 10:35 11/23/17 10:53 11/23/17 12:05 White Blood Count 4.2 TH/MM3 Red Blood Count 4.22 MIL/MM3 Hemoglobin 13.4 GM/DL Hematocrit 39.2 % Mean Corpuscular Volume 92.8 FL Mean Corpuscular Hemoglobin 31.8 PG Mean Corpuscular Hemoglobin Concent 34.2 % Red Cell Distribution Width 12.9 % Platelet Count 161 TH/MM3 Mean Platelet Volume 8.1 FL Neutrophils (%) (Auto) 79.8 % Lymphocytes (%) (Auto) 4.8 % Monocytes (%) (Auto) 12.9 % Eosinophils (%) (Auto) 2.1 % Basophils (%) (Auto) 0.4 % Neutrophils # (Auto) 3.3 TH/MM3 Lymphocytes # (Auto) 0.2 TH/MM3 Monocytes # (Auto) 0.5 TH/MM3 Eosinophils # (Auto) 0.1 TH/MM3 Basophils # (Auto) 0.0 TH/MM3 CBC Comment DIFF FINAL Differential Comment Prothrombin Time 10.7 SEC Prothromb Time International Ratio 1.1 RATIO Activated Partial Thromboplast Time 26.4 SEC Lactic Acid Level 1.5 mmol/L Blood Urea Nitrogen 11 MG/DL Creatinine 1.00 MG/DL Random Glucose 90 MG/DL Total Protein 6.0 GM/DL Albumin 2.8 GM/DL Calcium Level 8.3 MG/DL Alkaline Phosphatase 50 U/L Aspartate Amino Transf (AST/SGOT) 132 U/L Alanine Aminotransferase (ALT/SGPT) 101 U/L Total Bilirubin 0.4 MG/DL Sodium Level 140 MEQ/L Potassium Level 4.3 MEQ/L Chloride Level 104 MEQ/L Carbon Dioxide Level 27.8 MEQ/L Anion Gap 8 MEQ/L Estimat Glomerular Filtration Rate 76 ML/MIN Troponin I LESS THAN 0.02 NG/ML MDM Medical Decision Making Medical Screen Exam Complete: Yes Emergency Medical Condition: Yes Medical Record Reviewed: Yes Interpretation(s) Last Impressions Chest X-Ray 11/23/17 0000 Signed Impressions: Service Date/Time: Thursday, November 23, 2017 10:55 - CONCLUSION: Pleural-parenchymal scarring is noted in the left base unchanged. No acute cardiopulmonary process Viral Mg MD EKG shows sinus rhythm with no sign of acute ischemia or arrythmia read by me and attending CBC Diagram 11/23/17 10:35 troponin and CKMB negative BMP Diagram 11/23/17 12:05 Total Protein 6.0 #L, Albumin 2.8 L, Calcium Level 8.3 L, Alkaline Phosphatase 50, Aspartate Amino Transf (AST/SGOT) 132 H, Alanine Aminotransferase (ALT/SGPT ) 101 H, Total Bilirubin 0.4 coags WNL Differential Diagnosis Pneumonia versus bronchitis versus COPD versus cough versus influenza versus a typical chest pain Narrative Course 62-year-old male with a presents to the ED for evaluation of cold-like symptoms. Patient has probably examined him as found to have signs or symptoms consistent appears to be likely COPD versus bronchitis. Lapse in imaging however to be in order endon. Chest x-ray with negative for pneumonia. Likely bronchitis differential. Patient has a history of this in the past. Patient complains of some back in chest pain which only comes with coughing like to this as a source of the discomfort. But with the no show any sign of acute disease. More specifically no sign of ST elevation or acute ischemia. Patient with given Solu-Medrol as written treatments with improvement of symptoms. Patient will be sent home with prescription for albuterol patient once given prescription for the Room for pain., prednisone in azithromycin to help with symptoms. Patient with given Tessalon Perles for cough. Patient will seems to take OTC meds as needed. Follow with PCP. See ED if worsening symptoms. Diagnosis Primary Impression: Bronchitis Patient Instructions: General Instructions Additional Instructions: Motrin and Tylenol for pain and fever. You can use [id number] antihistamine as well as well as Mucinex as needed for runny nose and congestion. Cough drops for cough as needed. Drink plenty of fluids. Follow-up with PCP. See ED for worsening symptoms. Med/Other Pt SpecificInfo: Prescription(s) given Scripts Benzonatate (Tessalon Perles) 100 Mg Cap 100 MG PO TID Y for COUGH, #20 CAP 0 Refills Prov: Nelson Zurita MD 11/23/[address] (Diclofenac Sodium DR) 75 Mg Tabdr 75 MG PO BID Y for PAIN SCALE 1 TO 10, #20 TAB 0 Refills Prov: Nelson Zurita MD 11/23/17 Azithromycin (Azithromycin) 250 Mg Tab 250 MG PO DIRECTED for Infection, #6 TAB 0 Refills Take 2 tabs (500 mg) on day 1 then 1 tab daily x 4 days. Prov: Nelson Zurita MD 11/23/17 Prednisone (Deltasone) 20 Mg Tab 40 MG PO DAILY for 4 Days, #8 TAB 0 Refills start 10/27/2017 Prov: Nelson Zurita MD 11/23/17 Albuterol 18 GM Inh (Ventolin Hfa 18 GM Inh) 90 Mcg/Act Aer 2 PUFF INH Q4-6H Y for SOB/WHEEZING, #1 INHALER 0 Refills Prov: Nelson Zurita MD 11/23/17 Disposition: 01 DISCHARGE HOME Condition: Stable Valerio Wade Nov 23, 2017 11:32
[2017-11-23 12:00] VITALS: BP 121/70; PULSE 87; RESP 18; O2SAT 97
[2017-11-23 12:37] LABS: ALBUMIN 2.8 GM/DL (3.4-5.0); ALT (GPT) 101 U/L (12-78); AST (GOT) 132 U/L (15-37); BICARBONATE 27.8 MEQ/L (21.0-32.0); BLOOD UREA NITROGEN 11 MG/DL (7-18); CALCIUM 8.3 MG/DL (8.5-10.1); CHLORIDE 104 MEQ/L (98-107); GLOMERULAR FILTRATION RATE 76 ML/MIN (>89); GLUCOSE,RANDOM 90 MG/DL (74-106); SODIUM (NA) 140 MEQ/L (136-145)
[2017-11-23 12:50] LABS: ALKALINE PHOSPHATASE 50 U/L (45-117); TOTAL BILIRUBIN ADULT 0.4 MG/DL (0.2-1.0); TROPONIN I LESS THAN 0.02 NG/ML (0.02-0.05)
[2017-11-23] MEDS ORDERED: VENTAER INH (13:07)
[2017-11-23] MEDS ORDERED: PRED-503 PO (13:07)
[2017-11-23] MEDS ORDERED: AZIT250T3 PO (13:07)
[2017-11-23] MEDS ORDERED: DICL75TA PO (13:07)
[2017-11-23] MEDS ORDERED: BENZ100 PO (13:09)
[2017-11-23 14:27] VITALS: BP 123/70
--- NOTE | 2017-11-24 11:11 | EKG ---
Date Performed: 11/23/2017 Time Performed: 10:41:25 PTAGE: 62 years EKG: Sinus rhythm NORMAL ECG PREVIOUS TRACING : 04/24/2017 07.38 DOCTOR: Ajay Jose Interpretating Date/Time 11/24/2017 11:11:07
== END 2017-11-23 14:30 | disposition home or self-care (01) ==
LOC: NEPE 10:04
DX: J44.9 Chronic obstructive pulmonary disease, unspecified (principal); M54.9 Dorsalgia, unspecified; Z87.891 Personal history of nicotine dependence
CPT/HCPCS: 71045; 80053; 83605; 84484; 85025; 85610; 85730; 87040; 87804; 93005; 94640; 94664; 96374; 96375; 99285; J1885; J2930

== ENCOUNTER 2017-12-12 06:20 | Emergency (ER) | payer MEDICAID ==
[~2017-12-12] VITALS: Ht 195.6 cm; Wt 93.0 kg
[~2017-12-12 06:20] MED LIST changes: +AZIT250T3 PO; -AZIT500T2 PO; +BENZ100 PO; +DICL75TA PO
[2017-12-12 06:22] VITALS: BP 142/95; PULSE 64; TEMP 97.6; O2SAT 99
--- NOTE | 2017-12-12 06:55 | PD ---
HPI Chief Complaint: Cold / Flu Symptoms Time Seen by Provider: 06:49 Travel History International Travel<30 days: No Contact w/Intl Traveler<30days: No Traveled to known affect area: No History of Present Illness HPI 62-year-old male presents to the emergency department by private transportation for complaint of 1 month of shortness of breath or prior history of pneumonia COPD and bronchitis with recent antibiotic use and redness and swelling with tenderness to the distal right lower leg as a possible insect bite. Patient has had intermittent fever but denies any fever at this time. Cough has been nonproductive and no hemoptysis. Patient states he is not actively smoking at this time but does admit to alcohol use. Patient denies any abdominal pain but has had nausea and a large amount of diarrhea. Patient denies melena hematochezia mucoid stool or explosive stool. Patient states this is his third visit to the emergency department for respiratory and skin related issues. Patient has been on antibiotics several times recently. Patient states shortness of breath is worsened with activity. Patient states due to persistent symptoms returns again to the emergency department for reevaluation. Pain is estimated as 9/10 intensity chest discomfort with cough and right lower leg discomfort with palpation. PFSH Past Medical History Narrative Medical Arthritis COPD bronchitis cellulitis abscess hepatitis C; no tobacco use, alcohol use; nursing notes reviewed Hx Anticoagulant Therapy: No Arthritis: Yes Cardiovascular Problems: No Chemotherapy: No COPD: Yes Diabetes: No Diminished Hearing: Yes ([place]) Hepatitis: Yes (C) Musculoskeletal: Yes (LOW BACK PAIN ) Respiratory: Yes (COPD, PNEUMONIA , PLEURAL EFFUSION ) Pneumonia: Yes Tetanus Vaccination: < 5 Years Past Surgical History Oral Surgery: Yes (jaw wired) Other Surgery: Yes ("LUNGS SCRAPED R/T PNA") Social History Alcohol Use: Yes ("couple beers here and there") Tobacco Use: No (quit 20 years ago) Substance Use: No (HX:COCCAINE USE YEARS AGO ) Allergies-Medications (Allergen,Severity, Reaction): Coded Allergies: No Known Allergies (Verified Adverse Reaction, Unknown, 12/12/17) Reported Meds & Prescriptions Reported Meds & Active Scripts Active Tessalon Perles (Benzonatate) 100 Mg Cap 100 Mg PO TID PRN Diclofenac Sodium DR (Diclofenac Sodium) 75 Mg Tabdr 75 Mg PO BID PRN Azithromycin 250 Mg Tab 250 Mg PO DIRECTED Take 2 tabs (500 mg) on day 1 then 1 tab daily x 4 days. Deltasone (Prednisone) 20 Mg Tab 40 Mg PO DAILY 4 Days start 10/27/2017 Ventolin Hfa 18 GM Inh (Albuterol Sulfate) 90 Mcg/Act Aer 2 Puff INH Q4-6H PRN Clindamycin (Clindamycin HCl) 150 Mg Cap 300 Mg PO Q6H 7 Days Reported Sulfamethoxazole-Trimethoprim 800-160 Mg Tab 1 Tab PO BID Cephalexin 500 Mg Cap 500 Mg PO TID Ibuprofen 800 Mg Tab 800 Mg PO TID Meloxicam 15 Mg Tab 15 Mg PO DAILY Review of Systems Except as stated in HPI: all other systems reviewed are Neg Physical Exam Narrative GENERAL: Well-developed well-nourished male no acute distress or respiratory distress SKIN: Warm and dry. HEAD: Normocephalic. EYES: No scleral icterus. No injection or drainage. NECK: Supple, trachea midline. No JVD or lymphadenopathy. CARDIOVASCULAR: Regular rate and rhythm without murmurs, gallops, or rubs. RESPIRATORY: Breath sounds equal bilaterally. No accessory muscle use. GASTROINTESTINAL: Abdomen soft, non-tender, nondistended. MUSCULOSKELETAL: No cyanosis, or edema. Attention right lower leg anterior aspect 5 cm x 5 cm area of erythema and induration with central vesicle no pustules no fluctuance BACK: Nontender without obvious deformity. No CVA tenderness. Data Data Last Documented VS Vital Signs Date Time Temp Pulse Resp B/P (MAP) Pulse Ox O2 Delivery O2 Flow Rate FiO2 12/12/17 06:22 97.6 64 142/95 (111) 99 Room Air Orders Orders Complete Blood Count With Diff (12/12/17 06:49) Basic Metabolic Panel (Bmp) (12/12/17 06:49) B-Type Natriuretic Peptide (12/12/17 06:49) Troponin I (12/12/17 06:49) Influenzae A/B Antigen (12/12/17 06:49) Blood Culture (12/12/17 06:49) Iv Access Insert/Monitor (12/12/17 06:49) Electrocardiogram (12/12/17 06:49) Ecg Monitoring (12/12/17 06:49) Oximetry (12/12/17 06:49) Oxygen Administration (12/12/17 06:49) Chest, Single Ap (2/4/18 06:49) Sodium Chloride 0.9% Flush (Ns Flush) (12/12/17 07:00) Albuterol-Ipratropium Neb (Duoneb Neb) (12/12/17 07:00) Wound Culture And Gram Stain (12/12/17 06:49) Enteric Path (Stool) (12/12/17 06:49) C Diff Toxin Pcr (12/12/17 06:49) MDM Medical Decision Making Medical Screen Exam Complete: Yes Emergency Medical Condition: Yes Medical Record Reviewed: Yes Differential Diagnosis Dyspnea, bronchitis, pneumonia, PE, CHF, ACS, cellulitis, abscess, diarrheal illness, pseudomembranous colitis Narrative Course IV access obtained specimens collected and sent for resulting; chest x-ray ordered along with EKG @ 7:05 AM care signed over to Dr Sharp Diagnosis Primary Impression: Bronchitis Kamryn Grover MD Dec 12, 2017 06:55
[2017-12-12] MEDS ORDERED: SODIUM CHLORIDE 0.9% FLUSH 10 ML FLUSH IVF PRN (07:00)
[2017-12-12 07:14] VITALS: O2SAT 97
[2017-12-12] MEDS: RESP: ALBUTEROL 2.5 MG/IPRATROPIUM 0.5 MG NEB (SCH) INH (07:14)
[2017-12-12 07:34] LABS: AUTOMATED NEUTROPHIL # 4.3 TH/MM3 (1.8-7.7); BASOPHIL # 0.1 TH/MM3 (0-0.2); EOSINOPHIL # 0.2 TH/MM3 (0-0.4); EOSINOPHIL % 2.3 % (0.0-4.0); HEMATOCRIT 41.1 % (39.0-51.0); HEMOGLOBIN 14.4 GM/DL (13.0-17.0); LYMPH % 28.3 % (9.0-44.0); LYMPHOCYTE # 2.1 TH/MM3 (1.0-4.8); MEAN CORPUSCULAR HGB CONC 35.1 % (32.0-36.0); MEAN PLATELET VOLUME 8.6 FL (7.0-11.0); MONO % 9.8 % (0.0-8.0); MONOCYTE # 0.7 TH/MM3 (0-0.9); NEUT % 58.6 % (16.0-70.0); PLATELET COUNT 199 TH/MM3 (150-450); RED BLOOD COUNT 4.51 MIL/MM3 (4.50-5.90); RED CELL DISTRIBUTION WIDTH 13.1 % (11.6-17.2); WHITE BLOOD COUNT 7.3 TH/MM3 (4.0-11.0)
--- NOTE | 2017-12-12 07:34 | RADRPT ---
EXAM DATE/TIME: 12/12/2017 06:55 [facility] COMPARISON: CHEST PA & LAT, July 01, 2017, 10:26. CHEST SINGLE AP, November 23, 2017, 10:55. INDICATIONS : Cough x 3 weeks. MEDICAL HISTORY : Arthritis. Chronic obstructive pulmonary disease. Hep C SURGICAL HISTORY : None. ENCOUNTER: Initial ACUITY: 3 weeks PAIN SCORE: 7/10 LOCATION: Bilateral chest FINDINGS: A single view of the chest demonstrates pleural-parenchymal scarring left lower lobe. Right lung lissette r. Heart normal in size. Osseous structures are intact. CONCLUSION: Pleural-parenchymal scarring left lower lobe.. Dilan Jorge MD on December 12, 2017 at 7:31 Board Certified Radiologist. This report was verified electronically.
[2017-12-12 08:06] LABS: BICARBONATE 29.5 MEQ/L (21.0-32.0); BLOOD UREA NITROGEN 17 MG/DL (7-18); CALCIUM 8.6 MG/DL (8.5-10.1); CHLORIDE 108 MEQ/L (98-107); CREATININE 1.05 MG/DL (0.60-1.30); GLOMERULAR FILTRATION RATE 72 ML/MIN (>89); GLUCOSE,RANDOM 97 MG/DL (74-106); SODIUM (NA) 141 MEQ/L (136-145)
[2017-12-12 08:10] LABS: TROPONIN I LESS THAN 0.02 NG/ML (0.02-0.05)
[2017-12-12] MEDS ORDERED: CLIN150C14 PO (09:39)
[2017-12-12] MEDS ORDERED: PRED-503 PO (09:39)
--- NOTE | 2017-12-12 09:39 | PD ---
Physical Exam Narrative GENERAL: 62-year-old male in no apparent distress SKIN: Patient has small area of cellulitis to right mid lower extremity that has beginnings of an abscess but this area is not indurated and at this time does not appear to need drainage HEAD: Atraumatic. Normocephalic. EYES: Pupils equal and round. No scleral icterus. No injection or drainage. ENT: No nasal bleeding or discharge. Mucous membranes pink and moist. NECK: Trachea midline. No JVD. CARDIOVASCULAR: Regular rate and rhythm. No murmur appreciated. RESPIRATORY: No accessory muscle use. Clear to auscultation. Breath sounds equal bilaterally. NEUROLOGICAL: Awake and alert. No obvious cranial nerve deficits. Motor grossly within normal limits. Normal speech. PSYCHIATRIC: Appropriate mood and affect; insight and judgment normal. Data Data Last Documented VS Vital Signs Date Time Temp Pulse Resp B/P (MAP) Pulse Ox O2 Delivery O2 Flow Rate FiO2 12/12/17 07:14 97 Room Air 12/12/17 06:22 97.6 64 Orders Orders Complete Blood Count With Diff (12/12/17 06:49) Basic Metabolic Panel (Bmp) (12/12/17 06:49) B-Type Natriuretic Peptide (12/12/17 06:49) Troponin I (12/12/17 06:49) Influenzae A/B Antigen (12/12/17 06:49) Blood Culture (12/12/17 06:49) Iv Access Insert/Monitor (12/12/17 06:49) Electrocardiogram (12/12/17 06:49) Ecg Monitoring (12/12/17 06:49) Oximetry (12/12/17 06:49) Oxygen Administration (12/12/17 06:49) Chest, Single Ap (12/12/17 06:49) Sodium Chloride 0.9% Flush (Ns Flush) (12/12/17 07:00) Albuterol-Ipratropium Neb (Duoneb Neb) (12/12/17 07:00) Wound Culture And Gram Stain (12/12/17 06:49) Ed Discharge Order (12/12/17 09:37) Labs Laboratory Tests Test 12/12/17 07:05 White Blood Count 7.3 TH/MM3 Red Blood Count 4.51 MIL/MM3 Hemoglobin 14.4 GM/DL Hematocrit 41.1 % Mean Corpuscular Volume 91.0 FL Mean Corpuscular Hemoglobin 32.0 PG Mean Corpuscular Hemoglobin Concent 35.1 % Red Cell Distribution Width 13.1 % Platelet Count 199 TH/MM3 Mean Platelet Volume 8.6 FL Neutrophils (%) (Auto) 58.6 % Lymphocytes (%) (Auto) 28.3 % Monocytes (%) (Auto) 9.8 % Eosinophils (%) (Auto) 2.3 % Basophils (%) (Auto) 1.0 % Neutrophils # (Auto) 4.3 TH/MM3 Lymphocytes # (Auto) 2.1 TH/MM3 Monocytes # (Auto) 0.7 TH/MM3 Eosinophils # (Auto) 0.2 TH/MM3 Basophils # (Auto) 0.1 TH/MM3 CBC Comment DIFF FINAL Differential Comment Blood Urea Nitrogen 17 MG/DL Creatinine 1.05 MG/DL Random Glucose 97 MG/DL Calcium Level 8.6 MG/DL Sodium Level 141 MEQ/L Potassium Level 4.0 MEQ/L Chloride Level 108 MEQ/L Carbon Dioxide Level 29.5 MEQ/L Anion Gap 4 MEQ/L Estimat Glomerular Filtration Rate 72 ML/MIN Troponin I LESS THAN 0.02 NG/ML B-Type Natriuretic Peptide 27 PG/ML MDM Supervised Visit with MIKE: No Interpretation(s) CBC & BMP Diagram 12/12/17 07:05 Calcium Level 8.6 Last 24 hours Impressions Chest X-Ray 12/12/17 0649 Signed Impressions: Service Date/Time: Tuesday, December 12, 2017 06:55 - CONCLUSION: Pleural-parenchymal scarring left lower lobe.. Dilan Jorge MD Narrative Course Signed over to me to follow blood work and x-ray and if normal to discharge on steroids and antibiotics. If not able to produce stool sample here can cancel and he was unable to do this so these were canceled. Patient denies any new complaints and states that they are feeling better. Patient happy with care, all questions answered. Patient knows that follow up is incumbent on them and to return to the emergency room immediately if new or worsening symptoms develop. Patient given strict return precautions, vitals reviewed and are normal , agrees to further workup as an outpatient. Diagnosis Primary Impression: Bronchitis Additional Impression: Cellulitis, leg Qualified Codes: L03.115 - Cellulitis of right lower limb Additional Instruction: return as needed, follow with primary this week for recheck, albuterol every 4 hours as needed Med/Other Pt SpecificInfo: Prescription(s) given Scripts Clindamycin (Clindamycin) 150 Mg Cap 300 MG PO TID for Infection for 7 Days, CAP 0 Refills Prov: Isa Sharp MD 12/12/17 Prednisone (Deltasone) 20 Mg Tab 40 MG PO DAILY for 4 Days, #8 TAB 0 Refills start 12/13/2017 Prov: Isa Sharp MD 12/12/17 Disposition: 01 DISCHARGE HOME Condition: Stable Isa Sharp MD Dec 12, 2017 09:39
[2017-12-12 10:15] VITALS: BP 128/74
--- NOTE | 2017-12-12 12:06 | EKG ---
Date Performed: 12/12/2017 Time Performed: 07:29:39 PTAGE: 62 years EKG: SUPRAVENTRICULAR BRADYCARDIA POSSIBLE RIGHT VENTRICULAR CONDUCTION DELAY ABNORMAL RHYTHM EC G Since PREVIOUS TRACING , no significant change noted PREVIOUS TRACIN11/23/2017 10.41 DOCTOR: Anthony Diaz Interpretating Date/Time 12/12/2017 12:05:14
== END 2017-12-12 10:16 | disposition home or self-care (01) ==
LOC: NEPC 06:20
DX: J40 Bronchitis, not specified as acute or chronic (principal); L03.115 Cellulitis of right lower limb; R00.1 Bradycardia, unspecified; R94.31 Abnormal electrocardiogram [ECG] [EKG]; J44.9 Chronic obstructive pulmonary disease, unspecified; M19.90 Unspecified osteoarthritis, unspecified site; Z86.19 Personal history of other infectious and parasitic diseases; Z87.891 Personal history of nicotine dependence; Z79.899 Other long term (current) drug therapy
CPT/HCPCS: 71045; 80048; 83880; 84484; 85025; 86403; 87040; 87070; 87186; 87804; 93005; 94640; 94664; 99285

== ENCOUNTER 2018-04-06 09:28 | Emergency (ER) | payer MEDICAID ==
[~2018-04-06] VITALS: Ht 195.6 cm; Wt 82.0 kg
[~2018-04-06 09:28] MED LIST changes: -AZIT250T3 PO; -BENZ100 PO; -CEPH500C PO; -DICL75TA PO; -SULF1TAB23 PO
[2018-04-06 09:49] VITALS: BP 142/64; PULSE 61; RESP 16; TEMP 97.7; O2SAT 98
[2018-04-06] MEDS ORDERED: TRAM50TA PO (10:31)
[2018-04-06] MEDS ORDERED: BACT800T5 PO (10:31)
--- NOTE | 2018-04-06 10:36 | PD ---
HPI Chief Complaint: Skin Problem Time Seen by Provider: 09:57 Travel History International Travel<30 days: No Contact w/Intl Traveler<30days: No Traveled to known affect area: No History of Present Illness HPI This patient complains of 2 problems. He is got some cystic inflamed lesions on his right arm. He also complains of right-sided hip pain. Duration of the hip pain is 1 week. No injury. He is able to ride his bike all day without any pain but then when he gets off the bike he gets some discomfort. PFSH Past Medical History Hx Anticoagulant Therapy: No Arthritis: Yes Cardiovascular Problems: No Chemotherapy: No COPD: Yes Diabetes: No Diminished Hearing: Yes ([place]) Hepatitis: Yes (C) Musculoskeletal: Yes (LOW BACK PAIN ) Respiratory: Yes (COPD, PNEUMONIA , PLEURAL EFFUSION ) Pneumonia: Yes Tetanus Vaccination: < 5 Years Past Surgical History Oral Surgery: Yes (jaw wired) Other Surgery: Yes ("LUNGS SCRAPED R/T PNA") Social History Alcohol Use: Yes ("couple beers here and there") Tobacco Use: No (quit 20 years ago) Substance Use: No (HX:COCCAINE USE YEARS AGO ) Allergies-Medications (Allergen,Severity, Reaction): Coded Allergies: No Known Allergies (Verified Adverse Reaction, Unknown, 04/06/18) Reported Meds & Prescriptions Reported Meds & Active Scripts Active Tramadol (Tramadol HCl) 50 Mg Tab 50 Mg PO Q6H PRN Bactrim DS (Sulfamethoxazole-Trimethoprim) 800-160 Mg Tab 1 Tab PO BID Clindamycin (Clindamycin HCl) 150 Mg Cap 300 Mg PO TID 7 Days Deltasone (Prednisone) 20 Mg Tab 40 Mg PO DAILY 4 Days start 12/13/2017 Ventolin Hfa 18 GM Inh (Albuterol Sulfate) 90 Mcg/Act Aer 2 Puff INH Q4-6H PRN Reported Ibuprofen 800 Mg Tab 800 Mg PO TID Meloxicam 15 Mg Tab 15 Mg PO DAILY Review of Systems General / Constitutional: No: Fever HENT: No: Headaches Cardiovascular: No: Chest Pain or Discomfort Respiratory: No: Cough Physical Exam Narrative GASTROINTESTINAL: Abdomen soft, non-tender, nondistended. Positive bowel sounds. No hepato-splenomegaly, or palpable masses. No guarding. Good range of motion of right hip. No bony tenderness. He has some muscular tenderness in the buttock and proximal right thigh. Right arm: He has numerous cystic lesions on the right forearm. A couple of them have minor inflammation. One has some active discharge that I have cultured. They look like epidermoid cysts. Psych: Normal mood and affect. Normal insight and judgment. Data Data Last Documented VS Vital Signs Date Time Temp Pulse Resp B/P (MAP) Pulse Ox O2 Delivery O2 Flow Rate FiO2 04/06/18 09:49 97.7 61 16 142/64 (90) 98 MDM Medical Decision Making Medical Screen Exam Complete: Yes Emergency Medical Condition: Yes Medical Record Reviewed: Yes Differential Diagnosis Epidermoid cyst, cellulitis, boil, abscess Narrative Course I have reviewed the patient's electronic medical record. Patient has numerous cystic lesions that look like an epidermoid cyst. Couple are inflamed. I wrote a week of Bactrim DS. one I sent for culture and sensitivity and Gram stain Regarding his hip pain, I do not sense bony injury. He has good range of motion and he has been walking on it for a week. I do not think x-rays would be helpful Supportive care discussed in a does not tramadol written. Additional Instructions: The patient was warned about potential sedation for the medications they will receive on prescription. The patient was advised to follow up with their physician and return if they worsen. Med/Other Pt SpecificInfo: Prescription(s) given Scripts Tramadol (Tramadol) 50 Mg Tab 50 MG PO Q6H Y for PAIN, #12 TAB 0 Refills Prov: Nelson Zurita MD 04/06/18 Sulfamethoxazole-Trimethoprim (Bactrim DS) 800-160 Mg Tab 1 TAB PO BID for Infection, #14 TAB 0 Refills Prov: Nelson Zurita MD 04/06/18 Disposition: DISCHARGE HOME Condition: Stable Nelson Zurita MD April 06, 2018 10:36
== END 2018-04-06 10:56 | disposition home or self-care (01) ==
LOC: NEPD 09:28
DX: L72.0 Epidermal cyst (principal); S76.011A Strain of muscle, fascia and tendon of right hip, initial encounter; X58.XXXA Exposure to other specified factors, initial encounter
CPT/HCPCS: 99283